=== PATIENT | female | born 1985 | race Hispanic/Latino ===

== ENCOUNTER 2017-01-09 14:29 | Emergency (ER) | payer SELFPAY | END 2017-01-09 14:55 | disposition home or self-care (01) | LOC: NAV ERS 14:29 | DX: M54.5 Low back pain (principal); F17.210 Nicotine dependence, cigarettes, uncomplicated | CPT/HCPCS: 99283 ==

== ENCOUNTER 2017-08-31 18:46 | Emergency (ER) | payer SELFPAY ==
--- NOTE | 2017-08-31 19:47 | RAD ---
LEFT HAND THREE VIEW 08/31/17 HISTORY: Fall, trauma. COMPARISON: None. FINDINGS: No acute fracture. No malalignment. IMPRESSION: No acute fracture or malalignment. POS: [facility]
--- NOTE | 2017-08-31 19:50 | RAD ---
LEFT WRIST THREE VIEW 08/31/17 HISTORY: Fall. Trauma. Injury. COMPARISON: None. FINDINGS: No acute fracture or malalignment. IMPRESSION: No acute fracture or malalignment. POS: [facility]
== END 2017-08-31 19:43 | disposition home or self-care (01) ==
LOC: NAV ERS 18:46
DX: S63.502A Unspecified sprain of left wrist, initial encounter (principal); J45.909 Unspecified asthma, uncomplicated; F17.210 Nicotine dependence, cigarettes, uncomplicated; W19.XXXA Unspecified fall, initial encounter

== ENCOUNTER 2018-01-11 22:31 | Emergency (ER) | payer SELFPAY ==
[2018-01-11] MEDS ORDERED: Albuterol Sulfate 2.5 mg/3 ml Neb ONE (22:58)
[2018-01-11] MEDS ORDERED: predniSONE 20 MG TAB ONE (22:58)
== END 2018-01-11 23:08 | disposition home or self-care (01) ==
LOC: NAV ERS 22:31
DX: J45.909 Unspecified asthma, uncomplicated (principal); F17.210 Nicotine dependence, cigarettes, uncomplicated; Z79.51 Long term (current) use of inhaled steroids
CPT/HCPCS: 94640; 94760; J7506; J7611; J7620

== ENCOUNTER 2018-01-18 01:13 | Emergency (ER) | payer SELFPAY ==
[2018-01-18] MEDS ORDERED: Sodium Chloride 0.9% 1,000 ML ONE (01:31)
[2018-01-18] MEDS ORDERED: Ondansetron HCl/PF 4 MG/2 ML Vial ONE (01:31)
[2018-01-18 01:54] LABS: #Basophils 0.1 thou/uL (0.0-0.2); #Eosinphils 0.4 thou/uL (0.0-0.7); #Lymphocytes 3.7 thou/uL (1.20-3.40); #Monocytes 0.9 thou/uL (0.11-0.59); #Neutrophils 5.1 thou/uL (1.40-6.50); %Basophils 1.4 % (0.0-1.0); %Eosinophils 3.7 % (0.0-10.0); %Lymphocytes 36.7 % (21.0-51.0); %Monocytes 8.4 % (0.0-10.0); %Neutrophils 49.9 % (42.0-75.0); Hemoglobin 14.1 g/dL (12.0-16.0); Large Platelets SLIGHT; MDiff Complete? YES; Mean Corpuscular HGB CONC 33.1 g/dL (32.0-36.0); Mean Corpuscular Hemoglobin 29.3 pg (27.0-31.0); Mean Corpuscular Volume 88.5 fl (81.0-99.0); Mean Platelet Volume 12.2 fL (7.4-10.4); Platelet Count 234 thou/uL (130-400); RBC Distribution Width 12.3 % (11.5-14.5); RBC Morphology Normal; Red Blood Cell (RBC) Count 4.82 mill/uL (4.20-5.40); White Blood Cell (WBC) Count 10.1 thou/uL (4.8-10.8)
[2018-01-18 01:59] LABS: Bilirubin Negative (Negative); Blood, Urine Trace (Negative); Clarity Clear (Clear); Glucose, Urine (Dipstick) Negative (Negative); Leukocyte Negative (Negative); Nitrite Negative (Negative); Protein, Urine (Dipstick) Negative (Neg-Trace); Urobilinogen 0.2 mg/dL (0.2-1.0)
[2018-01-18 02:00] LABS: Bacteria/HPF None Seen HPF (None Seen); Pregnancy Test - Urine (BHCG) Negative (Negative); Specific Gravity 1.025 (1.002-1.036); Specific Gravity, Urine 1.025 (1.002-1.036); Squamous Epithelial 0-3 HPF (0-3); WBC/HPF None Seen HPF (0-3)
[2018-01-18 02:01] LABS: Pregu Control Background? CLEAR/WHITE (CLR/WHITE); Pregu Control Bar Appear? YES (CONTROL BAR)
[2018-01-18 02:09] LABS: ALT (SGPT) 44 U/L (8-55); AST (SGOT) 23 U/L (5-34); Alkaline Phosphatase 85 U/L (40-150); Anion Gap 14 mmol/L (10-20); BUN (Urea Nitrogen) 12 mg/dL (7.0-18.7); Bilirubin, Total 0.3 mg/dL (0.2-1.2); Calc. Creatinine Clearance 0 mL/min (70-130); Calcium 9.6 mg/dL (7.8-10.44); Carbon Dioxide 23 mmol/L (22-29); Chloride 105 mmol/L (98-107); Estimated GFR-MDRD Greater than 90; Glucose 146 mg/dL (70-105); Lipase 76 U/L (8-78); Sodium 138 mmol/L (136-145)
== END 2018-01-18 02:28 | disposition home or self-care (01) ==
LOC: NAV ERS 01:13
DX: K52.9 Noninfective gastroenteritis and colitis, unspecified (principal); J45.909 Unspecified asthma, uncomplicated; F17.210 Nicotine dependence, cigarettes, uncomplicated; Z79.899 Other long term (current) drug therapy; Z79.51 Long term (current) use of inhaled steroids
CPT/HCPCS: 36415; 80053; 81003; 81015; 81025; 83690; 85025; 96361; 96374; J2405; J7050

== ENCOUNTER 2019-06-18 21:58 | Emergency (ER) | payer SELFPAY ==
[2019-06-18] MEDS ORDERED: Albuterol Sulfate 2.5 mg/3 ml Neb ONE ×2 (22:08→22:37)
[2019-06-18] MEDS ORDERED: predniSONE 20 MG TAB ONE (22:14)
== END 2019-06-18 23:05 | disposition home or self-care (01) ==
LOC: NAV ERS 21:58
DX: J45.21 Mild intermittent asthma with (acute) exacerbation (principal); F17.210 Nicotine dependence, cigarettes, uncomplicated; Z79.51 Long term (current) use of inhaled steroids
CPT/HCPCS: 94640; J7512; J7611; J7620

== ENCOUNTER 2019-09-07 07:13 | Emergency (ER) | payer SELFPAY ==
[2019-09-07] MEDS ORDERED: Ondansetron ODT 4 MG TAB ONE (07:32)
[2019-09-07] MEDS ORDERED: Sodium Chloride 0.9% 1,000 ML ONE (07:43)
[2019-09-07] MEDS ORDERED: Ketorolac Tromethamine 30 MG/ML VIAL ONE (07:43)
[2019-09-07 07:44] LABS: #Basophils 0.1 thou/uL (0.0-0.2); #Eosinphils 0.3 thou/uL (0.0-0.7); #Lymphocytes 5.3 thou/uL (1.20-3.40); #Monocytes 1.3 thou/uL (0.11-0.59); #Neutrophils 7.5 thou/uL (1.40-6.50); %Basophils 0.9 % (0.0-1.0); %Lymphocytes 36.6 % (21.0-51.0); %Monocytes 8.7 % (0.0-10.0); %Neutrophils 51.7 % (42.0-75.0); Hemoglobin 14.1 g/dL (12.0-16.0); Mean Corpuscular HGB CONC 32.5 g/dL (32.0-36.0); Mean Corpuscular Hemoglobin 28.7 pg (27.0-31.0); Mean Corpuscular Volume 88.3 fL (78.0-98.0); Mean Platelet Volume 11.8 fL (7.4-10.4); Platelet Count 292 thou/uL (130-400); RBC Distribution Width 12.4 % (11.5-14.5); Red Blood Cell (RBC) Count 4.91 mill/uL (4.20-5.40); White Blood Cell (WBC) Count 14.4 thou/uL (4.8-10.8)
[2019-09-07 08:05] LABS: ALT (SGPT) 18 U/L (8-55); AST (SGOT) 17 U/L (5-34); Albumin 4.2 g/dL (3.5-5.0); Alkaline Phosphatase 73 U/L (40-110); Anion Gap 14 mmol/L (10-20); BUN (Urea Nitrogen) 11 mg/dL (7.0-18.7); Bilirubin, Total 0.9 mg/dL (0.2-1.2); Calc. Creatinine Clearance 0 mL/min (70-130); Calcium 9.3 mg/dL (7.8-10.44); Carbon Dioxide 20 mmol/L (22-29); Chloride 105 mmol/L (98-107); Estimated GFR-MDRD Greater than 90; Globulin 3.1 g/dL (2.4-3.5); Glucose 179 mg/dL (70-105); Lipase 21 U/L (8-78); Potassium 3.7 mmol/L (3.5-5.1); Protein, Total 7.3 g/dL (6.0-8.3); Sodium 135 mmol/L (136-145)
[2019-09-07] MEDS ORDERED: Fentanyl 100 MCG/2 ML VIAL ONE ×2 (08:20→09:29)
[2019-09-07 08:44] LABS: Bilirubin Negative (Negative); Blood, Urine Trace (Negative); Clarity Clear (Clear); Glucose, Urine (Dipstick) Negative (Negative); Leukocyte Negative (Negative); Nitrite Negative (Negative); Protein, Urine (Dipstick) Negative (Neg-Trace); Urobilinogen 0.2 mg/dL (Less than 2)
[2019-09-07 08:46] LABS: BHCG - Serum Negative (NEGATIVE); Pregs Control Bar Appear? YES (CONTROL BAR)
[2019-09-07 08:54] LABS: Bacteria/HPF Rare-Few HPF (None Seen); RBC/HPF 0-3 HPF (0-3); WBC/HPF None Seen HPF (0-3)
--- NOTE | 2019-09-07 09:00 | RAD ---
ABDOMEN 1 VIEW: HISTORY: Abdominal pain. FINDINGS: A 2.5 cm diameter somewhat rim-calcified density in the right upper quadrant possibly a large gallsto ne. There is evidence for a soft tissue mass density in the lower abdomen extending into the pelvis with the possibilities including that of a severely distended urinary bladder or enlarged uterus or o ther pelvis mass extending into the abdomen. Consider followup abdomen and pelvic CT scan for furthe r assessment in this regard. No bowel obstruction. IMPRESSION: No evidence for large or small bowel obstruction. Probable large gallstone. Evidence for a soft tis laci mass in the pelvis lower abdomen. Followup CT scan suggested. POS: [facility]
--- NOTE | 2019-09-07 09:22 | CT ---
ABDOMEN CT WITHOUT CONTRAST PELVIC CT WITHOUT CONTRAST: HISTORY: Left lower quadrant pain. COMPARISON: None. FINDINGS: Abdomen CT: Lung bases:Clear. Heart size: Normal heart size. Aorta: Normal caliber. Solid organs: Limited evaluation due to lack of IV contrast. Hypoattenuation of the liver due to hepa tic steatosis. Grossly no solid organ abnormality. Lymph nodes: No gastrohepatic, retrocrural or periportal lymphadenopathy. Gallbladder: Cholelithiasis, without evidence of cholecystitis. Mesentery: No mass, lymphadenopathy, free air or free fluid. Kidneys: Bilaterally, no hydronephrosis, nephrolithiasis or perinephric fat stranding. Bilateral uret ers have a normal caliber. No hydroureter, periureteral fat stranding or ureterolithiasis. Alimentary canal: Limited evaluation by the lack of oral contrast. No evidence of bowel obstruction. 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 Normal caliber appendix. Occasional diverticulum. No diverticulitis. CT PELVIS: No mass, adenopathy, free air or free fluid. Unremarkable uterus. Large hypodensity in the right hem ipelvis likely of ovarian origin, measuring 10.1 x 8.3 cm compatible with a cyst. There is a mixed solid and cystic lesion in the midline of the pelvis, superior to the uterus. This lesion is markedly enlarged and measures 14.8 cm in the craniocaudal dimension. A multiseptated, complex left adnexal/cystic lesion is suspected. Incomplete characterization. Urinary bladder: Contracted and cannot be further assessed. Osseous structures: No lytic or blastic lesions. IMPRESSION: 1. No evidence of obstructive uropathy. 2. Cholelithiasis without evidence of cholecystitis. 3. Probable right ovarian cyst and complex solid and cystic lesion associated with the left ovary. In complete characterization and evaluation. Further evaluation with pelvic MRI, not pelvic ultrasound is recommended given the size of the lesion. Additionally, RADIOLOGIC ELECTRONIC SPECIALIST consultation is recommended. Transcribed Date/Time: 09/07/2019 9:42 AM
[2019-09-07] MEDS ORDERED: Ondansetron PF 4 MG/2 ML Vial ONE (09:29)
[2019-09-07] MEDS ORDERED: Lactated Ringer's 1,000 ML ONE (09:45)
== END 2019-09-07 10:35 | disposition short-term general hospital (02) ==
LOC: NAV ERS 07:13
DX: N83.202 Unspecified ovarian cyst, left side (principal); N83.201 Unspecified ovarian cyst, right side; J45.909 Unspecified asthma, uncomplicated; F17.210 Nicotine dependence, cigarettes, uncomplicated; Z79.51 Long term (current) use of inhaled steroids
CPT/HCPCS: 36415; 51701; 74018; 74176; 80053; 81003; 81015; 83690; 84703; 85025; 96361; 96374; 96375; 96376; A4353; J1885; J2405; J3010; J7050; J7120; Q0162